=== PATIENT | female | born 1965 | race Two or more races ===

== ENCOUNTER 2016-04-25 17:42 | Emergency (ER) | payer OTHER ==
[~2016-04-25] VITALS: Ht 170.2 cm; Wt 61.2 kg
[2016-04-25] MEDS ORDERED: OLANZAPINE 10 MG VIAL IM ONE ×2 (17:58→18:00)
[2016-04-25] MEDS ORDERED: WATER FOR INJECTION,STERILE 10 ML ONE (17:58)
[2016-04-25] MEDS ORDERED: LORAZEPAM INJ 2 MG/ML VIAL ONE (18:07)
[2016-04-25 18:10] LABS: ANION GAP 11 (5-14); CALCIUM, SERUM 8.4 mg/dL (8.5-10.1); CARBON DIOXIDE 28 mmol/L (21-32); CHLORIDE 108 mmol/L (98-107); CREATININE 0.7 mg/dL (0.6-1.3); GFR 86 mL/min (>60); GLUCOSE 103 mg/dL (74-106); POTASSIUM 3.7 mmol/L (3.5-5.1); SODIUM SERUM 143 mmol/L (136-145); UREA NITROGEN, BLOOD 17 mg/dL (7-18)
[2016-04-25 18:18] LABS: ALANINE AMINOTRANSFERASE 30 U/L (12-78); ALBUMIN 3.6 g/dL (3.4-5.0); ASPARTATE AMINOTRANSFERASE 29 U/L (15-37); BILIRUBIN,DIRECT 0.1 mg/dL (0.0-0.2); BILIRUBIN,TOTAL 0.3 mg/dL (0.2-1.0); INDIRECT BILIRUBIN 0.2 mg/dL (0.0-1.1); TOTAL PROTEIN, SERUM 7.6 g/dL (6.4-8.2)
[2016-04-25 18:19] LABS: ACETAMINOPHEN 0 ug/ml (10-30); SALICYLATE 0.8 mg/dL (2.8-20.0)
[2016-04-25 18:24] LABS: HEMATOCRIT 30 % (33-45); HEMOGLOBIN 8.4 g/dL (11.5-14.8); MEAN CORPUSCULAR HEMOGLOBIN 19 PG (26.0-33.0); MEAN CORPUSCULAR HGB CONC 28 g/dl (31.0-36.0); MEAN CORPUSCULAR VOLUME 70 fL (82-100); PLATELET COUNT (AUTO) 219 /CMM (150-450); RED BLOOD CELL COUNT(AUTO) 4.35 MIL/uL (4.0-5.2); WHITE BLOOD COUNT (AUTO) 6.4 K/uL (4.3-11.0)
[2016-04-25] MEDS ORDERED: LORAZEPAM INJ 2 MG/ML VIAL IM ONE (18:30)
[2016-04-25 18:50] LABS: BAND % (MANUAL) 2 % (0.0-5.0); BASOPHILS % (MANUAL) 0 % (0.0-2.0); EOSINOPHILS % (MANUAL) 0 % (0-4); LYMPHOCYTES % (MANUAL) 26 % (16-48)
[2016-04-25 18:51] LABS: PLATELET ESTIMATE ADEQUATE; RBC MORPHOLOGY COMMENT ABNORMAL RBC MORPH
[2016-04-25 18:52] LABS: HYPOCHROMASIA 1+; POIKILOCYTOSIS 2+; POLYCHROMASIA 1+
[2016-04-25 18:53] LABS: ANISOCYTOSIS 3+; MICROCYTOSIS 1+
[2016-04-26 11:05] VITALS: BP 125/66
== END 2016-04-26 12:48 | disposition home or self-care (01) ==
LOC: ER 17:44 → EDBD 17:44 → ER 04-26 12:48
DX: F29 Unspecified psychosis not due to a substance or known physiological condition (principal)
CPT/HCPCS: 36415; 80048-TC; 80076-TC; 85025-TC; A4606; G6038-TC; G6039-TC; G6040-TC; J2060; J3490; Z7610

== ENCOUNTER 2016-05-20 22:37 | Emergency (ER) | payer OTHER | END 2016-05-21 00:16 | disposition left against medical advice (07) | DX: Z53.21 Procedure and treatment not carried out due to patient leaving prior to being seen by health care provider (principal) ==

== ENCOUNTER 2016-05-21 03:31 | Emergency (ER) | payer OTHER ==
[~2016-05-21] VITALS: Ht 172.7 cm; Wt 61.2 kg
[2016-05-21 03:33] VITALS: BP 163/84
== END 2016-05-21 05:09 | disposition home or self-care (01) ==
LOC: ER 03:31
DX: T63.301A Toxic effect of unspecified spider venom, accidental (unintentional), initial encounter (principal); F32.9 Major depressive disorder, single episode, unspecified; Z59.0 Homelessness; Y92.89 Other specified places as the place of occurrence of the external cause
CPT/HCPCS: 99283; A4606; Z7610

== ENCOUNTER 2016-06-13 00:42 | Inpatient (IN) | payer OTHER ==
[~2016-06-13] VITALS: Ht 170.2 cm; Wt 67.1 kg
--- NOTE | 2016-06-13 00:55 | NUR ---
To bed 8 a 50 yo female bibself with c/o of left hawley redness and swelling from the spider bite 2 weeks ago. Patient is alert oriented x4, ambulatory. No s/s of acute distress. Breathing even and unlabored. Afebrile. Awaiting for er md gaming.
[2016-06-13] MEDS ORDERED: VANCOMYCIN 1 GM in IV D5W 250 ML IV ONE (02:00)
[2016-06-13] MEDS ORDERED: IV SET PRIMARY PUMP SET 1 EA INFUS.SET MC ONE ×2 (02:04→13:46)
[2016-06-13] MEDS ORDERED: VANCOMYCIN 1 GM VIAL ONE (02:04)
[2016-06-13] MEDS ORDERED: IV D5W 250 ML IV ONE (02:04)
[2016-06-13 02:18] LABS: BASOPHILS % (AUTO) 0.3 % (0.0-2.0); EOSINOPHILS # (AUTO) 0.1 /CMM (0.0-0.7); EOSINOPHILS % (AUTO) 1.3 % (0.0-6.0); HEMATOCRIT 31 % (33-45); HEMOGLOBIN 9.1 g/dL (11.5-14.8); LYMPHOCYTES # (AUTO) 1.1 /CMM (0.8-4.8); MEAN CORPUSCULAR HEMOGLOBIN 19 PG (26.0-33.0); MEAN CORPUSCULAR HGB CONC 30 g/dl (31.0-36.0); MEAN CORPUSCULAR VOLUME 65 fL (82-100); MONOCYTES # (AUTO) 0.9 /CMM (0.1-1.30); MONOCYTES % (AUTO) 13.3 % (2.0-12.0); NEUTROPHILS # (AUTO) 4.6 /CMM (1.8-8.9); NEUTROPHILS % (AUTO) 68.1 % (43.0-81.0); PLATELET COUNT (AUTO) 296 /CMM (150-450); RDW COEFFICIENT OF VARIATION 23.4 (11.5-15.0); RED BLOOD CELL COUNT(AUTO) 4.74 MIL/uL (4.0-5.2); WHITE BLOOD COUNT (AUTO) 6.7 K/uL (4.3-11.0)
--- NOTE | 2016-06-13 02:20 | NUR ---
poultry farm laborer at bedside to draw blood.
--- NOTE | 2016-06-13 02:25 | NUR ---
started a saline lock 20g on the right hand.
[2016-06-13 02:29] LABS: CALCIUM, SERUM 9.3 mg/dL (8.5-10.1); CARBON DIOXIDE 29 mmol/L (21-32); CHLORIDE 103 mmol/L (98-107); CREATININE 0.6 mg/dL (0.6-1.3); GFR 105 mL/min (>60); GLUCOSE 96 mg/dL (74-106); POTASSIUM 3.5 mmol/L (3.5-5.1); SODIUM SERUM 139 mmol/L (136-145); UREA NITROGEN, BLOOD 19 mg/dL (7-18)
[2016-06-13 02:31] LABS: INR 0.99 (0.87-1.13); PROTHROMBIN TIME 10.6 SECS (9.5-12.7)
[2016-06-13 02:34] LABS: ALANINE AMINOTRANSFERASE 24 U/L (12-78); ALBUMIN 3.6 g/dL (3.4-5.0); ALKALINE PHOSPHATASE 86 U/L (46-116); ASPARTATE AMINOTRANSFERASE 23 U/L (15-37); BILIRUBIN,DIRECT 0.1 mg/dL (0.0-0.2); BILIRUBIN,TOTAL 0.5 mg/dL (0.2-1.0); TOTAL PROTEIN, SERUM 8.7 g/dL (6.4-8.2)
[2016-06-13 02:36] LABS: NEUTROPHILS % (MANUAL) 67 (42-76)
[2016-06-13 02:37] LABS: ANISOCYTOSIS 2+; BASOPHILS % (MANUAL) 0 % (0.0-2.0); EOSINOPHILS % (MANUAL) 2 % (0-4); HYPOCHROMASIA 2+; LYMPHOCYTES % (MANUAL) 23 % (16-48); MONOCYTES % (MANUAL) 8 % (0-11.0); PLATELET ESTIMATE ADEQUATE; TARGET CELLS 1+
[2016-06-13 02:37] LABS: TROPONIN I < 0.017 ng/mL (0.00-0.056)
[2016-06-13 02:44] LABS: LACTIC ACID 0.6 mmol/L (0.4-2.0)
--- NOTE | 2016-06-13 02:49 | NUR ---
urine collected and sent to lab.
[2016-06-13 03:14] LABS: APPEARANCE,URINE CLEAR (CLEAR); BILIRUBIN,URINE NEGATIVE (NEGATIVE); BLOOD, URINE 3+ Ery/uL (NEGATIVE); COLOR,URINE YELLOW (YELLOW); KETONES,URINE NEGATIVE (NEGATIVE); LEUKOCYTE ESTERASE ,URINE NEGATIVE (NEGATIVE); NITRITE, URINE NEGATIVE (NEGATIVE); PH,URINE 5.5 (5.0-8.0); PROTEIN,URINE NEGATIVE (NEGATIVE); UGLUCOSE NEGATIVE (NEGATIVE)
[2016-06-13 03:36] LABS: ADD URINE CULTURE NO; BACTERIA,URINE None seen /HPF (None Seen); SQUAMOUS EPITHELIAL CELL,UR Few /HPF (None Seen)
[2016-06-13 03:37] LABS: WBC,URINE 0-2 /HPF (0-3)
--- NOTE | 2016-06-13 03:37 | NUR ---
Report given to vinny for elissa.
--- NOTE | 2016-06-13 03:45 | NUR ---
Transported patient to [address], no incident noted.
[2016-06-13 04:00] VITALS: BP 167/83
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
[2016-06-13 05:25] VITALS: BP 148/75
--- NOTE | 2016-06-13 05:32 | NUR ---
RN NOTES BP NOW 148/75, PX STILL LETHARGIC BUT ORIENTED WHEN AWAKE BUT GOES BACK TO SLEEP AFTER 5 SEC.
[2016-06-13] MEDS ORDERED: ENOXAPARIN SODIUM 40 MG/0.4 ML DISP.SYRIN SQ ONE (05:48)
[2016-06-13] MEDS: ENOXAPARIN SODIUM 40 MG/0.4 ML DISP.SYRIN SQ SCH (05:51)
--- NOTE | 2016-06-13 05:54 | NUR ---
RN NOTES ADMISSION ORDERS MADE AND CARRIED OUT, DUE MED GIVEN.
[2016-06-13] MEDS ORDERED: MAGNESIUM HYDROXIDE 30 ML UDC PO PRN (06:00)
[2016-06-13] MEDS ORDERED: Z GUARD REMEDY 2 OZ OINT TP PRN (06:00)
[2016-06-13] MEDS ORDERED: ZOLPIDEM TARTRATE 5 MG TABLET PO PRN (06:00)
[2016-06-13] MEDS ORDERED: ONDANSETRON HCL/PF 4 MG/2 ML VIAL IVP PRN (06:00)
[2016-06-13] MEDS ORDERED: MAG HYDROX/AL HYDROX/SIMETH 30 ML UDC PO PRN (06:00)
[2016-06-13] MEDS ORDERED: HYDROCODONE/APAP 5/325MG 1 EACH TABLET PO PRN (06:00)
[2016-06-13] MEDS ORDERED: ACETAMINOPHEN 325 MG TABLET PO PRN (06:00)
--- NOTE | 2016-06-13 06:13 | NUR ---
RN NOTES CONDITION AND NEURO STATUS UNCHANGED; STILL LETHARGIC BUT AROUSABLE, RESP EVEN AND UNLABORED; SUGGESTED TO MD DRUG TOX; WHEN AWAKE, DENIED PAIN, SOB, N/V BUT STILL GOES BACK TO SLEEP AFTER 5 SEC SO UNABLE TO GET A GOOD AND ACCURATE HISTORY. SKIN ON THE BACK AND BUTT REMAINED INTACT, MEPILEX DRESSINGS ON THE LEFT LEG REMAINED CLEAN, DRY, INTACT; PIV REMAINED PATENT AND INTACT; WILL ENDORSE TO NEXT RN.
--- NOTE | 2016-06-13 07:20 | NUR ---
M/S RN - OPENING NOTE PT LETHARGIC, OPENS EYES TO NAME. RESPONDS TO SOME QUESTIONS. BREATHING IS EVEN AND UNLABORED ON RA. IVHL PATENT AND INTACT. LEFT LOWER EXTREMITY REDNESS NOTED. SIDE RAILS UPX2, CALL LIGHT WITHIN REACH, BED LOCKED AND IN LOWEST POSITION.
[2016-06-13] MEDS ORDERED: FEE PK DOSING 1 MIN EA MC ONE (07:38)
[2016-06-13 08:00] VITALS: BP 131/62
--- NOTE | 2016-06-13 08:02 | NUR ---
WOUND CARE CONSULT: PT PRESENTS WITH WOUNDS TO LEFT LOWER LEG WITH PURULENT DRAINAGE. SOME REDNESS AND SWELLING NOTED TO LOWER LEG. RECOMMENDATIONS MADE AND DISCUSSED WITH NURSING STAFF. PT ABLE TO TURN AND REPOSITION IN BED. PT IS CONTINENT. WILL SEE PRN. RECOMMEND SURGICAL CONSULT. IN AGREEMENT WITH PLAN OF CARE. Addendum: 06/13/16 at 0803 by AMOL WYATT WNDNU Amended: Links added.
[2016-06-13] MEDS ORDERED: LEVE500T9 PO (08:06)
[2016-06-13] MEDS ORDERED: QUET25TA PO (08:06)
[2016-06-13] MEDS: PANTOPRAZOLE 40 MG TABLET.DR PO SCH (08:41)
[2016-06-13] MEDS ORDERED: SILVER SULFADIAZINE CREAM 25 GM TUBE TP SCH (09:00)
--- NOTE | 2016-06-13 09:42 | NUR ---
M/S RN - NOTE PT SITTING UP IN BED, AWAKE, EATING BREAKFAST, PT STATES, SHE LIVES ON THE STAIRS AT [facility] [address]. ALSO STATES SHE HAS SPIDERS IN HER HAIR AND THINKS SHE HAS LICE. DR. PRYOR MADE AWARE. NO FURTHER ORDERS GIVEN. CONTACT PRECAUTIONS INITIATED.
[2016-06-13] MEDS: DAKINS QUARTER STRENGTH (0.125%) 480 ML BOTTLE TOP SCH (13:00)
[2016-06-13] MEDS ORDERED: LORAZEPAM INJ 2 MG/ML VIAL IV PRN (13:30)
[2016-06-13] MEDS ORDERED: IV NS 0.9% 250 ML IV ONE (13:46)
[2016-06-13] MEDS ORDERED: SECONDARY IV SET 1 EA INFUS.SET MC ONE (13:46)
[2016-06-13] MEDS: LEVETIRACETAM (250 MG) 250 MG TABLET PO SCH ×2 (13:51→21:21)
[2016-06-13] MEDS: VANCOMYCIN 1 GM in IV D5W 250 ML IV SCH (13:51)
[2016-06-13] MEDS: QUETIAPINE FUMARATE 25 MG TABLET PO SCH (13:51)
[2016-06-13] MEDS: DIAZEPAM 5 MG TABLET PO PRN (15:07)
--- NOTE | 2016-06-13 15:08 | NUR ---
M/S RN - NOTE PT SCREAMING, SAYING A GIANT SPIDER CRAWLED INSIDE OF HER. PT IS VERY AGITATED, ANXIOUS. DR. PRYOR MADE AWARE, ORDER RECEIVED FOR VALIUM. WILL ADMINISTER.
--- NOTE | 2016-06-13 15:50 | NUR ---
Social service consult requested by VERONIKA Tyler for homelessness. Per H&P report by Dr. Hare, pt. is a 50-year-old female who presented to the emergency department with complaints of pain and swelling to the left lower extremity pain she states that she thinks that she might have been bitten by a spider 2 weeks ago. She denies fevers or chills. She complains of swelling to the area as well as draining from 2 wounds. She denies any injury, trauma or fall. Pt. states that she is on Keppra, Seroquel and Adderall at home. Has difficulty giving any other historyPt. was admitted to [facility] for a complicated wound. SW met with pt. bedside. Pt. is A&O x 2. Pt. is able to state her date of and current location. Pt. looks disheveled and has protein powder rubbed on her face stating, " it's good for her." Pt. is a poor historian and mumbles answers that are difficult to comprehend. Pt. informed SW she has a house but is homeless by choice. Pt. is unable to give concrete answers to questions that are asked of her. SW is unable to complete assessment due to pt. providing limited history. SW informed VERONIKA Tyler to place a psych consult for pt.
[2016-06-13 16:00] VITALS: BP 141/66
--- NOTE | 2016-06-13 19:50 | NUR ---
MS RN NOTE: PATIENT RESTING IN BED, NO ACUTE DISTRESS NOTED. BREATHING EVEN AND UNLABORED, NO SOB NOTED. DRESSING TO LLE CLEAN, DRY AND IN PLACE. HL TO RIGHT HAND IN PLACE. BED LOCKED AND IN LOWEST POSITION, CALL LIGHT IN REACH. WILL CONTINUE TO MONITOR.
[2016-06-13 20:00] VITALS: BP 140/83
[2016-06-14] MEDS: VANCOMYCIN 1 GM in IV D5W 250 ML IV SCH ×3 (01:29→21:21)
--- NOTE | 2016-06-14 02:30 | NUR ---
MS RN NOTE: WOUND CULTURE TO LEFT LOWER LEG COLLECTED. WOUND CARE PROVIDED TO LEFT LEG ORDERED. WOUND CULTURE PLACED IN SPECIMEN REFRIGERATOR. WILL CONTINUE TO MONITOR.
[2016-06-14] MEDS: ENOXAPARIN SODIUM 40 MG/0.4 ML DISP.SYRIN SQ SCH (05:31)
--- NOTE | 2016-06-14 06:15 | NUR ---
MS RN NOTE: PATIENT RESTING IN BED, NO ACUTE DISTRESS NOTED. BREATHING EVEN AND UNLABORED, NO SOB NOTED. DRESSING TO LLE CLEAN, DRY AND IN PLACE. HL TO RIGHT HAND IN PLACE. BED LOCKED AND IN LOWEST POSITION, CALL LIGHT IN REACH. WILL ENDORSE TO DAY NURSE TO CONTINUE WITH PLAN OF CARE.
[2016-06-14 06:37] LABS: BASOPHILS % (AUTO) 0.3 % (0.0-2.0); EOSINOPHILS # (AUTO) 0.1 /CMM (0.0-0.7); EOSINOPHILS % (AUTO) 1.4 % (0.0-6.0); HEMATOCRIT 28 % (33-45); HEMOGLOBIN 8.6 g/dL (11.5-14.8); LYMPHOCYTES # (AUTO) 1.4 /CMM (0.8-4.8); MEAN CORPUSCULAR HEMOGLOBIN 20 PG (26.0-33.0); MEAN CORPUSCULAR HGB CONC 31 g/dl (31.0-36.0); MEAN CORPUSCULAR VOLUME 65 fL (82-100); MONOCYTES # (AUTO) 0.9 /CMM (0.1-1.30); MONOCYTES % (AUTO) 14.5 % (2.0-12.0); NEUTROPHILS # (AUTO) 3.8 /CMM (1.8-8.9); NEUTROPHILS % (AUTO) 60.8 % (43.0-81.0); PLATELET COUNT (AUTO) 235 /CMM (150-450); RDW COEFFICIENT OF VARIATION 22.9 (11.5-15.0); RED BLOOD CELL COUNT(AUTO) 4.34 MIL/uL (4.0-5.2); WHITE BLOOD COUNT (AUTO) 6.2 K/uL (4.3-11.0)
--- NOTE | 2016-06-14 07:10 | NUR ---
MS RN OPENING NOTES RECEIVED PT. IN STABLE CONDITION, SLEEPING IN BED. NO SIGNS OF DISTRESS OR PAIN NOTED AT THIS TIME. BED IN LOW LOCKED POSITION, SIDE RAILS UP X2, CALL LIGHT WITHIN REACH. IV ON RIGHT HAND 20G PATENT AND INTACT. WILL CONTINUE TO MONITOR.
[2016-06-14 08:00] VITALS: BP 132/73
[2016-06-14 08:23] LABS: CALCIUM, SERUM 8.1 mg/dL (8.5-10.1); CREATININE 0.6 mg/dL (0.6-1.3); MAGNESIUM 1.5 mg/dL (1.8-2.4); PHOSPHORUS 3.8 mg/dL (2.5-4.9); POTASSIUM 3.5 mmol/L (3.5-5.1)
[2016-06-14 08:45] LABS: ANISOCYTOSIS 2+; BASOPHILS % (MANUAL) 0 % (0.0-2.0); EOSINOPHILS % (MANUAL) 5 % (0-4); HYPOCHROMASIA 2+; LYMPHOCYTES % (MANUAL) 19 % (16-48); MONOCYTES % (MANUAL) 11 % (0-11.0); NEUTROPHILS % (MANUAL) 65 (42-76); PLATELET ESTIMATE ADEQUATE
[2016-06-14] MEDS: QUETIAPINE FUMARATE 25 MG TABLET PO SCH ×2 (09:04→16:38)
[2016-06-14] MEDS: PANTOPRAZOLE 40 MG TABLET.DR PO SCH (09:04)
[2016-06-14] MEDS: LEVETIRACETAM (250 MG) 250 MG TABLET PO SCH ×2 (09:04→21:21)
[2016-06-14 10:00] VITALS: BP 132/73
[2016-06-14] MEDS ORDERED: SECONDARY IV SET 1 EA INFUS.SET MC ONE ×3 (11:06→21:21)
[2016-06-14] MEDS ORDERED: IV NS 0.9% 250 ML IV ONE (11:06)
[2016-06-14] MEDS: DAKINS QUARTER STRENGTH (0.125%) 480 ML BOTTLE TOP SCH (11:47)
[2016-06-14] MEDS: FOLIC ACID 1 MG TABLET PO SCH (11:49)
[2016-06-14] MEDS: Magnesium 1GM/D5W 100ML PREMIX 100 ML IV SCH ×3 (11:49→14:18)
[2016-06-14] MEDS: THIAMINE HCL 100 MG TABLET PO SCH (11:49)
[2016-06-14 16:00] VITALS: BP 111/66
[2016-06-14] MEDS: SOD FERRIC GLUC 125 MG in IV NS 0.9% 100 ML IV SCH (16:52)
--- NOTE | 2016-06-14 18:05 | NUR ---
MS RN CLOSING NOTES PT IN STABLE CONDITION, LYING IN BED. BED IN LOW LOCKED POSITION, SIDE RAILS UP X2, CALL LIGHT WITHIN REACH. IV ON RIGHT WRIST 22G INTACT AND PATENT. ALL SAFETY MEASURES ENFORCED AND ALL NEEDS AND ORDERS CARRIED OUT THROUGHOUT SHIFT. WILL ENDORSE TO METER SHOP SUPERVISOR NURSE FOR BRIAN
[2016-06-14 20:00] VITALS: BP 111/63
--- NOTE | 2016-06-14 20:00 | NUR ---
RECEIVED PATIENT IN BED, ALERT AND ORIENTED X2, WITH EPISODES OF CONFUSION AND HALLUCINATION. PATIENT SEEING SPIDERS. NO SOB, ON ROOM AIR, 02 SAT 100%, LUNG SOUNDS ARE CLEAR, ABDOMEN SOFT AND NON-TENDER, DENIES ANY PAIN AT THIS TIME. LEFT HAND SALINE LOCK IS PATENT, SECURED WITH KERLIX. PATIENT IS FORGETFUL, IV LINE IS PULLED WHEN GOING TO THE TOILET, PATIENT FORGETS IV LINE IS CONNECTED. LEFT LOWER LEG DRESSING IS PATENT AND INTACT. NO BLEEDING NOTED. PATIENT NOTED SLAMMING BEDSIDE COMMODE, TRYING TO KILL SPIDERS. EXPLAINED TO PATIENT NO SPIDERS ON THE FLOOR. PATIENT CALMED DOWN AND LIE DOWN ON THE BED. PATIENT ABLE TO AMBULATE TO THE TOILET. KEPT SAFE AND COMFORTABLE, CALL LIGHT WITHIN REACH.
[2016-06-15] MEDS: VANCOMYCIN 1 GM in IV D5W 250 ML IV SCH ×3 (04:18→21:35)
[2016-06-15] MEDS: ENOXAPARIN SODIUM 40 MG/0.4 ML DISP.SYRIN SQ SCH (05:11)
--- NOTE | 2016-06-15 07:54 | NUR ---
CASSIE RN NOTES RECEIVED PT IN BED SLEEPING COMFORTABLY, EASY TO AWAKE, NO SOB OR DISTRESS NOTED, WILL MONITOR. Addendum: 06/15/16 at 0902 by DAMIR CARRILLO RN ADDENDUM: ABOVE NOTE DOCUMENTED BY ME UNDER WRONG LOG IN, DOCUMENTATION IS CORRECT.
[2016-06-15 08:01] LABS: CALCIUM, SERUM 8.2 mg/dL (8.5-10.1); CREATININE 0.6 mg/dL (0.6-1.3); MAGNESIUM 1.9 mg/dL (1.8-2.4); PHOSPHORUS 4.6 mg/dL (2.5-4.9); POTASSIUM 3.6 mmol/L (3.5-5.1)
[2016-06-15] MEDS: LEVETIRACETAM (250 MG) 250 MG TABLET PO SCH ×2 (08:08→21:35)
[2016-06-15] MEDS: PANTOPRAZOLE 40 MG TABLET.DR PO SCH (08:09)
[2016-06-15] MEDS: THIAMINE HCL 100 MG TABLET PO SCH (08:09)
[2016-06-15] MEDS: FOLIC ACID 1 MG TABLET PO SCH (08:09)
[2016-06-15] MEDS: QUETIAPINE FUMARATE 25 MG TABLET PO SCH ×2 (08:09→16:39)
[2016-06-15] MEDS: DAKINS QUARTER STRENGTH (0.125%) 480 ML BOTTLE TOP SCH (08:09)
[2016-06-15 08:13] VITALS: BP 143/74
--- NOTE | 2016-06-15 09:50 | NUR ---
Tried to perform left tib/fib x ray series, pt in restroom. will try later today
[2016-06-15] MEDS ORDERED: SECONDARY IV SET 1 EA INFUS.SET MC ONE (14:53)
[2016-06-15] MEDS: SOD FERRIC GLUC 125 MG in IV NS 0.9% 100 ML IV SCH (14:54)
[2016-06-15 16:00] VITALS: BP 130/74
--- NOTE | 2016-06-15 16:40 | NUR ---
PT IN BED, NAKED, REFUSED TO WEAR GAUNT, STATED: " SPIDERS ARE IN MY BED AND GAUNT", PT REORIENTED AND BED CHANGED, REFUSED TO TAKE SEROQUEL, SHE STATED THAT SPIDERS ARE IN THE MEDICATIONS CAP AND SHE WILL NOT TAKE IT. WILL MONITOR PT.
--- NOTE | 2016-06-15 18:19 | NUR ---
PT IN BED, AGREED TO WEAR GAUNT, BED CHANGED X4 PER PT'S REQUEST, SHE STATED:" I SEE SPIDERS I MY BED, CAN YOU BEE IT", WILL INDORSE PT TO NEXT SHIFT FOR BRIAN.
--- NOTE | 2016-06-15 19:45 | NUR ---
MS RN NOTE: PATIENT RESTING IN BED, NO ACUTE DISTRESS NOTED. BREATHING EVEN AND UNLABORED, NO SOB NOTED. HL TO LEFT HAND IN PLACE. DRESSING TO LEFT LEG IN PLACE. BED LOCKED AND IN LOWEST POSITION, CALL LIGHT IN REACH, WILL CONTINUE TO MONITOR.
[2016-06-15 20:00] VITALS: BP 135/73
[2016-06-15] MEDS: DIAZEPAM 5 MG TABLET PO PRN (22:28)
--- NOTE | 2016-06-15 22:45 | NUR ---
MS RN NOTE: PATIENT ANXIOUS AND TRYING TO GET OUT OF BED AND ACCIDENTALLY PULLED OUT IV SITE. NEW IV STARTED TO LEFT FOREARM #22, WITH GOOD BLOOD RETURN. VALIUM 5MG ORAL GIVEN TO HELP RELAX PATIENT. WILL CONTINUE TO MONITOR.
[2016-06-16] MEDS: VANCOMYCIN 1 GM in IV D5W 250 ML IV SCH ×3 (04:23→20:29)
[2016-06-16] MEDS: ENOXAPARIN SODIUM 40 MG/0.4 ML DISP.SYRIN SQ SCH (05:27)
--- NOTE | 2016-06-16 05:30 | NUR ---
MS RN NOTE: PATIENT TO BE TRANSFERRED UP TO ROOM 320-2, REPORT GIVEN TO VERONIKA JORGENSEN. HL TO LFA IN PLACE. DRESSING TO LEFT LEG CLEAN AND IN PLACE. PATIENT WHEELED OFF THE FLOOR IN STABLE CONDITION, WITH ALL BELONGINGS AND CHART.
--- NOTE | 2016-06-16 05:35 | NUR ---
MS RN NOTE RECEIVED PATIENT FROM MS 2, A&OX2, CONFUSED AT TIMES, AMBULATORY, NO S/S OF RESPIRATORY DISTRESS DENIES PAIN. IV ON LEFT FA IS PATENT AND INTACT, HL. WILL CONTINUE TO MONITOR
[2016-06-16 05:45] VITALS: BP 163/72
--- NOTE | 2016-06-16 06:44 | NUR ---
MS RN NOTE NO ACUTE EVENT NOTED SINCE PT CAME UP TO 3W. WILL ENDORSE TO DAY SHIFT FOR BRIAN.
[2016-06-16 07:19] LABS: EOSINOPHILS # (AUTO) 0.1 /CMM (0.0-0.7); EOSINOPHILS % (AUTO) 2.5 % (0.0-6.0); HEMATOCRIT 30 % (33-45); HEMOGLOBIN 9.1 g/dL (11.5-14.8); LYMPHOCYTES # (AUTO) 1.8 /CMM (0.8-4.8); LYMPHOCYTES % (AUTO) 35.8 % (20.0-44.0); MEAN CORPUSCULAR HEMOGLOBIN 20 PG (26.0-33.0); MEAN CORPUSCULAR HGB CONC 30 g/dl (31.0-36.0); MEAN CORPUSCULAR VOLUME 66 fL (82-100); MONOCYTES # (AUTO) 0.9 /CMM (0.1-1.30); MONOCYTES % (AUTO) 18.6 % (2.0-12.0); NEUTROPHILS # (AUTO) 2.2 /CMM (1.8-8.9); NEUTROPHILS % (AUTO) 43.1 % (43.0-81.0); PLATELET COUNT (AUTO) 279 /CMM (150-450); RDW COEFFICIENT OF VARIATION 22.9 (11.5-15.0); RED BLOOD CELL COUNT(AUTO) 4.61 MIL/uL (4.0-5.2)
[2016-06-16 07:35] LABS: CALCIUM, SERUM 8.8 mg/dL (8.5-10.1); CREATININE 0.6 mg/dL (0.6-1.3); MAGNESIUM 1.5 mg/dL (1.8-2.4); PHOSPHORUS 4.9 mg/dL (2.5-4.9)
[2016-06-16 08:00] VITALS: BP 148/70
--- NOTE | 2016-06-16 08:15 | NUR ---
MS RN RECEIVED ON BED, AWAKE,ALERT,ORIENTED X2,NOT IN ANY FORM OF DISTRESS, RESPIRATIONS EVEN AND UNLABORED, NO SOB NOTED. LUNGS ARE CLEAR,ABDOMEN SOFT,POSITIVE BOWEL SOUNDS, DENIES PAIN AT THIS TIME,ALL NEEDS ATTENDED.
[2016-06-16] MEDS: QUETIAPINE FUMARATE 25 MG TABLET PO SCH ×2 (09:10→17:30)
[2016-06-16] MEDS: LEVETIRACETAM (250 MG) 250 MG TABLET PO SCH ×2 (09:10→20:29)
[2016-06-16] MEDS: FOLIC ACID 1 MG TABLET PO SCH (09:10)
[2016-06-16] MEDS: THIAMINE HCL 100 MG TABLET PO SCH (09:10)
[2016-06-16] MEDS: PANTOPRAZOLE 40 MG TABLET.DR PO SCH (09:10)
[2016-06-16 09:11] LABS: EOSINOPHILS % (MANUAL) 2 % (0-4); LYMPHOCYTES % (MANUAL) 29 % (16-48); MONOCYTES % (MANUAL) 16 % (0-11.0); NEUTROPHILS % (MANUAL) 53 (42-76); PLATELET ESTIMATE ADEQUATE
--- NOTE | 2016-06-16 09:30 | NUR ---
MS BANDA BREAKFAST SERVED, DUE MEDS GIVEN,TOLERATED WELL.
[2016-06-16] MEDS ORDERED: SECONDARY IV SET 1 EA INFUS.SET MC ONE ×3 (13:19→16:02)
[2016-06-16] MEDS ORDERED: IV SET PRIMARY PUMP SET 1 EA INFUS.SET MC ONE (13:19)
[2016-06-16] MEDS ORDERED: IV NS 0.9% 250 ML IV ONE (13:20)
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
[2016-06-16] MEDS: DAKINS QUARTER STRENGTH (0.125%) 480 ML BOTTLE TOP SCH (14:53)
[2016-06-16] MEDS: Magnesium 1GM/D5W 100ML PREMIX 100 ML IV SCH ×3 (15:03→17:58)
[2016-06-16] MEDS: SOD FERRIC GLUC 125 MG in IV NS 0.9% 100 ML IV SCH (15:03)
[2016-06-16 16:00] VITALS: BP 143/93
--- NOTE | 2016-06-16 18:00 | NUR ---
ms rn received a call from [facility], patient is mrsa wound positive, patient on isolation precaution.
--- NOTE | 2016-06-16 19:45 | NUR ---
MS RN NOTE RECEIVED PATIENT FROM DAY SHIFT, PATIENT IS ALERT AND ORIENTEDX2, CONFUSED SOMETIMES. IV ON LEFT FA IS PATENT AND INTACT, ABX IS RUNNING. NO S/S OF RESPIRATORY DISTRESS OR PAIN PRESENT. SRX2, BED IN LOW POSITION, CALL LIGHT WITHIN REACH, WILL CONTINUE TO MONITOR PATIENT.
[2016-06-16 20:36] VITALS: BP 150/79
[2016-06-17] MEDS: VANCOMYCIN 1 GM in IV D5W 250 ML IV SCH ×3 (05:07→21:44)
[2016-06-17] MEDS: ENOXAPARIN SODIUM 40 MG/0.4 ML DISP.SYRIN SQ SCH (05:07)
--- NOTE | 2016-06-17 05:55 | NUR ---
MS RN NOTE PATIENT'S IV LINE ON LEFT FA WAS PULLED OUT, REINSERTED ON RIGHT WRIST 20G. RECONNECTED HER IV ABX.
--- NOTE | 2016-06-17 06:47 | NUR ---
MS RN NOTE PATIENT IS RESTING IN BED COMFORTABLY, NO S/S OF RESPIRATORY DISTRESS AND NO COMPLAINS OF PAIN PRESENT. IV ON RIGHT WRIST IS PATENT AND INTACT, HL ONLY. WILL ENDORSE TO DAY SHIFT NURSE FOR BRIAN.
--- NOTE | 2016-06-17 07:30 | NUR ---
RN MS NOTES PT IN BED, AWAKE, ALERT AND ORIENTED, NO COMPLAINT OF PAIN, BREATHING PATTERN NORMAL AND NOT LABORED, CALL LIGHT WITHIN REACH, LEFT LEG WOUND DRESSINGS INTACT AND DRY, ISOLATION PRECAUTIONS OBSERVED.
[2016-06-17 07:34] LABS: BASOPHILS % (AUTO) 0.4 % (0.0-2.0); EOSINOPHILS # (AUTO) 0.2 /CMM (0.0-0.7); EOSINOPHILS % (AUTO) 2.6 % (0.0-6.0); HEMATOCRIT 32 % (33-45); HEMOGLOBIN 9.7 g/dL (11.5-14.8); LYMPHOCYTES # (AUTO) 1.8 /CMM (0.8-4.8); LYMPHOCYTES % (AUTO) 29.9 % (20.0-44.0); MEAN CORPUSCULAR HEMOGLOBIN 20 PG (26.0-33.0); MEAN CORPUSCULAR HGB CONC 30 g/dl (31.0-36.0); MEAN CORPUSCULAR VOLUME 66 fL (82-100); MONOCYTES # (AUTO) 0.8 /CMM (0.1-1.30); MONOCYTES % (AUTO) 12.5 % (2.0-12.0); NEUTROPHILS # (AUTO) 3.3 /CMM (1.8-8.9); NEUTROPHILS % (AUTO) 54.6 % (43.0-81.0); PLATELET COUNT (AUTO) 270 /CMM (150-450); RED BLOOD CELL COUNT(AUTO) 4.81 MIL/uL (4.0-5.2)
[2016-06-17 07:37] LABS: CALCIUM, SERUM 8.7 mg/dL (8.5-10.1); CREATININE 0.6 mg/dL (0.6-1.3); MAGNESIUM 1.9 mg/dL (1.8-2.4); POTASSIUM 3.9 mmol/L (3.5-5.1)
[2016-06-17 08:00] VITALS: BP 156/66
[2016-06-17] MEDS: LEVETIRACETAM (250 MG) 250 MG TABLET PO SCH ×2 (08:52→21:44)
[2016-06-17] MEDS: PANTOPRAZOLE 40 MG TABLET.DR PO SCH (08:52)
[2016-06-17] MEDS: FOLIC ACID 1 MG TABLET PO SCH (08:52)
[2016-06-17] MEDS: THIAMINE HCL 100 MG TABLET PO SCH (08:52)
[2016-06-17] MEDS: QUETIAPINE FUMARATE 25 MG TABLET PO SCH ×2 (08:52→17:26)
[2016-06-17] MEDS: DAKINS QUARTER STRENGTH (0.125%) 480 ML BOTTLE TOP SCH (08:54)
--- NOTE | 2016-06-17 13:00 | NUR ---
RN MS NOTES PT IN BED, AWAKE, ALERT AND ORIENTED, DENIES PAIN, NOT IN DISTRESS, RESPIRATIONS NORMAL, ASSISTED WITH SHOWER, TREATMENT DONE AND DRESSING CHANGE DONE TO LEFT LEG WOUNDS, PLAN OF CARE DISCUSSED WITH PT, VERBALIZED UNDERSTANDING.
[2016-06-17] MEDS: SOD FERRIC GLUC 125 MG in IV NS 0.9% 100 ML IV SCH (15:42)
[2016-06-17 16:00] VITALS: BP 135/77
--- NOTE | 2016-06-17 18:46 | NUR ---
RN MS NOTES PT IN BED, AWAKE, ALERT AND ORIENTED, DENIES PAIN, NOT IN DISTRESS, AMBULATES TO THE BATHROOM WITH STEADY GAIT, CALL LIGHT WITHIN REACH, ISOLATION PRECAUTIONS OBSERVED, ALL NEEDS ATTENDED.
[2016-06-17 20:00] VITALS: BP 103/54
--- NOTE | 2016-06-17 20:00 | NUR ---
MS BATH MIXER INITIAL NOTES SEEN PT IN BED RESTING WITH EYES CLOSED BUT AROUSES TO TOUCH, DENIES ANY PAIN OR ANY DISCOMFORT. RESPIRATION EVEN AND UNLABORED, STILL WITH DRESSINGS ON HER LOWER LEGS. OFFLOAD BILATERAL FOOT ON PILLOWS, KEPT HER COMFORTABLE AT ALL TIMES. PLACE CALL LIGHT AT REACH AND ENCOURAGES PT O USED IT IF SHE NEEDS SOME HELP OR ASSISTANCE. WILL CONTINUE TO MONITOR.
[2016-06-17] MEDS: MUPIROCIN OINT 2% 22 GM TUBE SCH (21:45)
--- NOTE | 2016-06-17 23:00 | NUR ---
MS SINGLE CORNER CUTTER NOTES VANCOMYCIN IVP BAG DONE INFUSING, NO ADVERSE REACTION NOTED. PT REMAINS SLEEPING COMFORTABLY WITHOUT ANY DISCOMFORT NOTED. WILL CONTINUE TO MONITOR . ON ISOLATION PRECAUTION IMPLEMENTED AND OBSERVED.
[2016-06-18] MEDS: VANCOMYCIN 1 GM in IV D5W 250 ML IV SCH ×2 (05:36→12:42)
[2016-06-18] MEDS: ENOXAPARIN SODIUM 40 MG/0.4 ML DISP.SYRIN SQ SCH (05:58)
--- NOTE | 2016-06-18 06:23 | NUR ---
MICHAEL /NOTES PT AWAKE AND ALERT WATCHING TV AT THIS TIME, DENIES ANY PAIN OR ANY DISCOMFORT. VANCOMYCIN IV STILL INFUSING NO ADVSERSE Addendum: 06/18/16 at 0626 by CHELSIE TAVERAS LVN DISREGARD THIS NOTE ERROR.
--- NOTE | 2016-06-18 06:55 | NUR ---
MS MICHAEL CLOSING NOTES PT WOKE UP BEFORE WE STARTED DOING HER WOUND CARE TREATMENT. SLEPT WELL AND STABLE [place] THE NIGHT. ALL DUE MEDS GIVEN AND ALL NEEDS MET. KEPT HER WARM AND COMFORTABLE AT ALL TIMES. STILL ON ISOLATION PRECAUTION IMPLEMENTED. AND OBSERVED. PT STILL NEEDS ENCOURAGEMENT TO TAKE CARE OF HERSELF . WILL ENDORSE TO AM NURSE.
--- NOTE | 2016-06-18 07:01 | NUR ---
MS/RN OPENING NOTES RECEIVED PATIENT IN BED AWAKE IN NO ACUTE SIGNS OF DISTRESS. ALERT AND ORIENTED X 2. ABLE TO VERBALIZED NEEDS, NO C/O PAIN OR DISCOMFORTS AT THIS TIME. ON ROOM AIR, BREATHING WELL WITH NO RESPIRATORY DISTRESS NOTED. IV ACCESS ON RIGHT HAND G#22 INTACT AND PATENT. DRESSINGS INTACT AND PATENT. BED IN LOW POSITION AND LOCKED WITH CALL LIGHT WITH IN REACH. SAFETY MEASURES MAINTAINED. WILL CONTINUE TO MONITOR ACCORDINGLY.
[2016-06-18 07:18] LABS: BASOPHILS % (AUTO) 0.5 % (0.0-2.0); EOSINOPHILS # (AUTO) 0.2 /CMM (0.0-0.7); EOSINOPHILS % (AUTO) 2.8 % (0.0-6.0); HEMATOCRIT 33 % (33-45); HEMOGLOBIN 9.7 g/dL (11.5-14.8); LYMPHOCYTES # (AUTO) 1.8 /CMM (0.8-4.8); LYMPHOCYTES % (AUTO) 32.6 % (20.0-44.0); MEAN CORPUSCULAR HEMOGLOBIN 20 PG (26.0-33.0); MEAN CORPUSCULAR HGB CONC 30 g/dl (31.0-36.0); MEAN CORPUSCULAR VOLUME 67 fL (82-100); MONOCYTES # (AUTO) 0.8 /CMM (0.1-1.30); MONOCYTES % (AUTO) 14.3 % (2.0-12.0); NEUTROPHILS # (AUTO) 2.7 /CMM (1.8-8.9); NEUTROPHILS % (AUTO) 49.8 % (43.0-81.0); PLATELET COUNT (AUTO) 266 /CMM (150-450); RDW COEFFICIENT OF VARIATION 22.7 (11.5-15.0); RED BLOOD CELL COUNT(AUTO) 4.87 MIL/uL (4.0-5.2); WHITE BLOOD COUNT (AUTO) 5.5 K/uL (4.3-11.0)
[2016-06-18] MEDS: PANTOPRAZOLE 40 MG TABLET.DR PO SCH (07:38)
[2016-06-18 08:00] VITALS: BP 157/69
[2016-06-18 08:05] LABS: CALCIUM, SERUM 8.9 mg/dL (8.5-10.1); CREATININE 0.8 mg/dL (0.6-1.3); MAGNESIUM 1.8 mg/dL (1.8-2.4); PHOSPHORUS 4.6 mg/dL (2.5-4.9); POTASSIUM 4.1 mmol/L (3.5-5.1)
[2016-06-18 08:44] LABS: EOSINOPHILS % (MANUAL) 2 % (0-4); LYMPHOCYTES % (MANUAL) 24 % (16-48); MONOCYTES % (MANUAL) 14 % (0-11.0); NEUTROPHILS % (MANUAL) 60 (42-76)
[2016-06-18 08:45] LABS: ANISOCYTOSIS 1+; HYPOCHROMASIA 1+; PLATELET ESTIMATE ADEQUATE
[2016-06-18] MEDS: FOLIC ACID 1 MG TABLET PO SCH (09:33)
[2016-06-18] MEDS: QUETIAPINE FUMARATE 25 MG TABLET PO SCH ×2 (09:33→16:48)
[2016-06-18] MEDS: LEVETIRACETAM (250 MG) 250 MG TABLET PO SCH (09:33)
[2016-06-18] MEDS: THIAMINE HCL 100 MG TABLET PO SCH (09:33)
[2016-06-18] MEDS: MUPIROCIN OINT 2% 22 GM TUBE SCH (09:38)
[2016-06-18] MEDS: DAKINS QUARTER STRENGTH (0.125%) 480 ML BOTTLE TOP SCH (09:39)
[2016-06-18] MEDS ORDERED: SULF1TAB48 PO (11:12)
[2016-06-18] MEDS ORDERED: LEVE250T2 PO (11:12)
[2016-06-18] MEDS ORDERED: THIA100T13 PO (11:12)
[2016-06-18] MEDS ORDERED: QUET25TA PO (11:12)
[2016-06-18] MEDS ORDERED: Folic Acid PO (11:12)
--- NOTE | 2016-06-18 12:45 | NUR ---
RN NOTES VANCOMYCIN IVPB FOR 1300H WILL NOT BE GIVEN, VANCO TROUGH LEVEL IS 23 (HIGH). WILL CONTINUE TO MONITOR
[2016-06-18] MEDS: DIAZEPAM 5 MG TABLET PO PRN (13:32)
[2016-06-18] MEDS: SOD FERRIC GLUC 125 MG in IV NS 0.9% 100 ML IV SCH (14:00)
--- NOTE | 2016-06-18 14:11 | NUR ---
RN NOTES PATIENT EXPLAINED THAT SHE WILL BE DISCHARGED TODAY TO [facility]. SHE REFUSED AND STARTED SCREAMING THAT SHE DIDN'T LIKE TO BE TRANSFERRED TO SNF. CHARGE NURSE AWARE. HOME CARE CONSULTANT CAME TOP UNIT AND TALKED TO HER AND STILL REFUSED TO GO TO [facility]. PRN VALIUM 5MG TAB GIVEN TO CALM HER DOWN. RESIDENT CALM DOWN AND WENT TO SLEEP. WILL CONTINUE TO MONITOR
[2016-06-18 16:00] VITALS: BP 124/68
--- NOTE | 2016-06-18 19:16 | NUR ---
RN DISCHARGED NOTES PATIENT LEFT UNIT IN STABLE CONDITION AT 1905 AMBULATORY ACCOMPANIED BY THIS PAINTER SHIPYARD TO THE LOBBY. SHE'S ALERT AND RESPONSIVE X3, NO COMPLAINTS OF PAIN OR DISCOMFORTS ON DISCHARGE. VITALS SIGNS TAKEN AND RECORDED. PHOTOS OF SKIN WOUNDS TAKEN AND FILED ON CHART. FLU AND PNEUMO VACCINES REFUSED. BELONGINGS CHECKED, COUNTED AND SIGNED BY PATIENT. HEALTH TEACHINGS GIVEN TO PATIENT AND VERBALIZED UNDERSTANDING. MD AND CHARGE NURSE AWARE OF DISCHARGE.
== END 2016-06-18 19:15 | disposition home or self-care (01) | DRG 383 ==
LOC: ER 00:46 → MEDSG2 03:15 → MED 06-16 05:41
PROVIDERS: ADMIT Internal Medicine; ATTEND Internal Medicine
DX: L03.116 Cellulitis of left lower limb (principal); L97.209 Non-pressure chronic ulcer of unspecified calf with unspecified severity; E83.42 Hypomagnesemia; D50.9 Iron deficiency anemia, unspecified; F29 Unspecified psychosis not due to a substance or known physiological condition; G40.909 Epilepsy, unspecified, not intractable, without status epilepticus; T63.301A Toxic effect of unspecified spider venom, accidental (unintentional), initial encounter; L02.416 Cutaneous abscess of left lower limb; Y92.009 Unspecified place in unspecified non-institutional (private) residence as the place of occurrence of the external cause; Z59.0 Homelessness; F41.9 Anxiety disorder, unspecified; I70.202 Unspecified atherosclerosis of native arteries of extremities, left leg; L97.919 Non-pressure chronic ulcer of unspecified part of right lower leg with unspecified severity
CPT/HCPCS: 36415; 73590-TC; 80048-TC; 80076-TC; 80202-TC; 81000-TC; 83605-TC; 83735-TC; 84100-TC; 84484-TC; 85025-TC; 85730-TC; 87040-TC; 87070-TC; 87081-TC; 93925-TC; 93970-TC; A4606; A6402; A6403; J1650; J2060; J2916; J3370; J3475; J7030; J7050; J7060; Z7610

== ENCOUNTER 2016-06-20 09:34 | Emergency (ER) | payer OTHER ==
[~2016-06-20] VITALS: Ht 165.1 cm; Wt 2.4 kg
[~2016-06-20 09:34] MED LIST: Folic Acid PO; LEVE250T2 PO; QUET25TA PO; SULF1TAB48 PO; THIA100T13 PO
--- NOTE | 2016-06-20 09:34 | NUR ---
PT COMPLAINTS OF HEADACHE, REQUESTING FOR TYLENOL #3,IODINE AND "SUFLOXIN". NAD NOTED. PT AAO X4, AMB WITH STEADY GAIT. RR EVEN AND UNLABORED. VSS. PENDING MD AGARWAL
[2016-06-20] MEDS ORDERED: OLANZAPINE 5 MG TABLET PO ONE (10:00)
[2016-06-20] MEDS ORDERED: OLANZAPINE 10 MG VIAL IM ONE ×2 (10:00→10:04)
[2016-06-20] MEDS ORDERED: LORAZEPAM INJ 2 MG/ML VIAL ONE (10:05)
[2016-06-20 10:24] LABS: BASOPHILS % (AUTO) 0.4 % (0.0-2.0); EOSINOPHILS # (AUTO) 0.1 /CMM (0.0-0.7); EOSINOPHILS % (AUTO) 0.7 % (0.0-6.0); HEMATOCRIT 34 % (33-45); HEMOGLOBIN 10.5 g/dL (11.5-14.8); LYMPHOCYTES % (AUTO) 21.1 % (20.0-44.0); MEAN CORPUSCULAR HEMOGLOBIN 21 PG (26.0-33.0); MEAN CORPUSCULAR HGB CONC 31 g/dl (31.0-36.0); MEAN CORPUSCULAR VOLUME 67 fL (82-100); MONOCYTES % (AUTO) 10.7 % (2.0-12.0); NEUTROPHILS # (AUTO) 6.3 /CMM (1.8-8.9); NEUTROPHILS % (AUTO) 67.1 % (43.0-81.0); PLATELET COUNT (AUTO) 283 /CMM (150-450); RED BLOOD CELL COUNT(AUTO) 5.06 MIL/uL (4.0-5.2); WHITE BLOOD COUNT (AUTO) 9.5 K/uL (4.3-11.0)
[2016-06-20] MEDS ORDERED: LORAZEPAM INJ 2 MG/ML VIAL IM ONE (10:30)
[2016-06-20 10:34] LABS: CALCIUM, SERUM 9.5 mg/dL (8.5-10.1); CARBON DIOXIDE 27 mmol/L (21-32); CHLORIDE 99 mmol/L (98-107); CREATININE 1.6 mg/dL (0.6-1.3); GFR 34 mL/min (>60); GLUCOSE 126 mg/dL (74-106); POTASSIUM 4.1 mmol/L (3.5-5.1); SODIUM SERUM 137 mmol/L (136-145); UREA NITROGEN, BLOOD 47 mg/dL (7-18)
[2016-06-20 10:39] LABS: ALANINE AMINOTRANSFERASE 30 U/L (12-78); ALBUMIN 3.8 g/dL (3.4-5.0); ALKALINE PHOSPHATASE 84 U/L (46-116); ASPARTATE AMINOTRANSFERASE 35 U/L (15-37); BILIRUBIN,DIRECT 0.1 mg/dL (0.0-0.2); BILIRUBIN,TOTAL 0.4 mg/dL (0.2-1.0); TOTAL PROTEIN, SERUM 9.4 g/dL (6.4-8.2)
[2016-06-20 10:44] LABS: BASOPHILS % (MANUAL) 1 % (0.0-2.0); EOSINOPHILS % (MANUAL) 2 % (0-4); LYMPHOCYTES % (MANUAL) 15 % (16-48); MONOCYTES % (MANUAL) 7 % (0-11.0); NEUTROPHILS % (MANUAL) 75 (42-76)
[2016-06-20 10:45] LABS: ANISOCYTOSIS 2+; HYPOCHROMASIA 2+; PLATELET ESTIMATE ADEQUATE; TARGET CELLS FEW
[2016-06-20 10:48] LABS: ACETAMINOPHEN < 10 ug/ml (10-30); ALCOHOL, BLOOD < 3 mg/dL (0-0)
--- NOTE | 2016-06-20 10:52 | NUR ---
RPatient is resting comfortably in bed with eyes closed. Easily aroused. VSS
--- NOTE | 2016-06-20 10:56 | NUR ---
MARLENY SMITH CALLED [phone], LEFT MESSAGE.
--- NOTE | 2016-06-20 12:07 | NUR ---
MARLENY AT BEDSIDE FOR EVAL.
[2016-06-20 12:31] LABS: APPEARANCE,URINE Slightly Cloudy (CLEAR); BLOOD, URINE Moderate Ery/uL (NEGATIVE); COLOR,URINE Dark (YELLOW); KETONES,URINE Negative (NEGATIVE); LEUKOCYTE ESTERASE ,URINE Negative (NEGATIVE); NITRITE, URINE Negative (NEGATIVE); PROTEIN,URINE 100 mg/dl (NEGATIVE); UGLUCOSE Negative (NEGATIVE); UROBILINOGEN,URINE 0.2 EU/dL (0.2)
[2016-06-20 12:32] LABS: BILIRUBIN,URINE SMALL (NEGATIVE)
[2016-06-20 12:50] LABS: ADD URINE CULTURE NO; BACTERIA,URINE Few /HPF (None Seen); SQUAMOUS EPITHELIAL CELL,UR Few /HPF (None Seen); URINE AMORPHOUS URATE Few /HPF (None Seen)
[2016-06-20 12:56] LABS: CANNABINOID, URINE NEGATIVE (NEGATIVE); PHENCYCLIDINE SCREEN,URINE NEGATIVE (NEGATIVE)
[2016-06-20 17:43] VITALS: BP 145/68
--- NOTE | 2016-06-20 17:45 | NUR ---
Patient discharged to home in stable condition. Written and verbal after care instructions given. Patient verbalizes understanding of instruction. ambulatory with steady gait. pt given referrals by VERONIKA james. no further complaints.
== END 2016-06-20 17:43 | disposition home or self-care (01) ==
LOC: ER 09:40
DX: F29 Unspecified psychosis not due to a substance or known physiological condition (principal); G40.909 Epilepsy, unspecified, not intractable, without status epilepticus; F17.210 Nicotine dependence, cigarettes, uncomplicated
CPT/HCPCS: 36415; 80048; 80076; 80305; 80329; 81001; 85025; 96372 ×2; 99284; A4606; G0480 ×2; J2060; J3490; Z7610; 81000-TC; G6039-TC